=== PATIENT | male | born 1950 | race Caucasian/White ===

== ENCOUNTER 2018-06-20 09:31 | Day surgery (SDC) | payer OTHER ==
--- NOTE | 2018-06-13 10:59 | GHP ---
[f rep st] PREOP HISTORY AND PHYSICAL DATE OF ADMISSION: 06/20/2018 DATE OF SURGERY: 06/20/2018. PREOP DIAGNOSIS: Sebaceous cyst of left back and left inguinal hernia. HISTORY OF PRESENT ILLNESS: A 68-year-old man who has a recurrent infected sebaceous cyst of his lef t back, status post incision and drainage. It is healing since the time of his initial evaluation. He also complains of left inguinal hernia times several years, became symptomatic when he was traveli ng in [place] and he reports discomfort, especially after significant exercise such as 18 holes of golf . It becomes firm with walking. He notices a palpable bulge that is reducible. He does not have an y problems with urination. He does notice frequency and incomplete evacuation with bowel movements. His symptoms are escalating over the past year. PAST MEDICAL HISTORY: Hearing loss, hyperlipidemia, chronic knee pain. PAST SURGICAL HISTORY: Right arthroscopic knee surgery with meniscus tear. Uvulopalatopharyngoplast y. MEDICATIONS: Gill, Ambien, aspirin 81 mg, atorvastatin, Flonase, vitamin D3. ALLERGIES: No known drug allergies. FAMILY HISTORY: Significant for bladder cancer in brother, diabetes in brother and sister, and Crohn disease in daughter. SOCIAL HISTORY: He is a former smoker. Denies current tobacco or recreational drug use. He does dr ink alcohol daily. He is . REVIEW OF SYSTEMS: No fevers or chills. PHYSICAL EXAM: GENERAL: A well-developed, well-nourished man in no acute distress. HEENT: Normoce phalic, atraumatic. No hearing deficits. Pupils are equal and round. No scleral icterus. Mucous m embranes are moist. NECK: Trachea midline. RESPIRATORY: Clear to auscultation bilaterally. No in creased work of breathing. CARDIOVASCULAR: No peripheral edema. Regular rate and rhythm. SKIN: A 3 cm cyst on back without surrounding induration or evidence of active infection. ABDOMEN: Soft, n ondistended and nontender. Obvious left inguinal hernia, reducible. No evidence of right inguinal h ernia. PSYCH: Mood and affect normal. NEURO: Grossly intact. IMPRESSION AND PLAN: A 68-year-old man with left inguinal hernia and recurrent left back sebaceous c yst. Recommend laparoscopic, possible open left, possible bilateral inguinal hernia repair with mesh . We will also perform excisional excision of the sebaceous cyst. Discussed risks of surgery includ ing, but not limited to heart attack, stroke, blood clots, or . Discussed risk of infection, bl eeding, damage to surrounding structures such as the cord or cord structures, and recurrence were all discussed. He understands the risks and would like to proceed. This will be outpatient procedure. He will receive antibiotics on-call to the operating room. /[id number]/MODL
[2018-06-20] MEDS ORDERED: ceFAZolin 2 GM/DEXTROSE 100 ML IV ONE (09:39)
[2018-06-20] MEDS ORDERED: LR 1,000 ML IV ONE (09:39)
[2018-06-20] MEDS ORDERED: MIDAZOLAM 2 MG/2 ML VIAL IVP ONE (10:03)
[2018-06-20] MEDS ORDERED: BUPIVACAINE 0.5% 30 ML SDV ONE (10:05)
--- NOTE | 2018-06-20 10:21 | PDHPUP ---
History & Physical Update H&P update statement: This history and physical update is based on an assessment of the patient which was completed after admission or registration (within 24 hours), but prior to the surgery/procedure. H&P update: H&P reviewed & patient examined, no change in patient's condition since H&P completed
[2018-06-20] MEDS ORDERED: PROPOFOL/EMULSION 500 MG/50 ML BOTTLE IV ONE ×3 (10:23→12:06)
[2018-06-20] MEDS ORDERED: PROPOFOL 200 MG/20 ML VIAL ONE (10:23)
[2018-06-20] MEDS ORDERED: fentaNYL 250 MCG/5 ML INJ ONE (10:23)
--- NOTE | 2018-06-20 10:28 | PDANEPAE ---
ANE History of Present Illness Left inguinal hernia repair laparoscopic possible BL. Left back lesion excision ANE Past Medical History - Cardiovascular History Hx Hypertension: No Hx Arrhythmias: No Hx Chest Pain: No Hx Coronary Artery / Peripheral Vascular Disease: No Hx CHF / Valvular Disease: No Hx Palpitations: No Cardiovascular History Comment: high chol - Pulmonary History Hx COPD: No Hx Asthma/Reactive Airway Disease: No Hx Recent Upper Respiratory Infection: No Hx Oxygen in Use at Home: No Hx Sleep Apnea: Yes Sleep Apnea Screening Result - Last Documented: Positive Pulmonary History Comment: hx of RICKEY but had surgery to fix - Neurologic History Hx Cerebrovascular Accident: No Hx Seizures: No Hx Dementia: No - Endocrine History Hx Diabetes: No Hypothyroid: No Hyperthyroid: No - Renal History Hx Renal Disorders: No - Liver History Hx Hepatic Disorders: No - Neurological & Psychiatric Hx Hx Neurological and Psychiatric Disorders: No - Cancer History Hx Cancer: No - Congenital Disorder History Hx Congenital Disorders: No - GI History Hx Gastrointestinal Disorders: Yes Gastrointestinal History Comment: hx of colonoscopy - Other Health History Other Health History: wears glasses - Chronic Pain History Chronic Pain: No - Surgical History Prior Surgeries: UPPP in 2002. right knee meniscus repair 2012 ANE Review of Systems Review of Systems: - Exercise capacity METS (RN): 4 METS ANE Patient History - Allergies Allergies/Adverse Reactions: No Known Allergies Allergy (Verified 06/16/18 09:10) - Home Medications Home medications: home medication list seen and reviewed Home Medications: Aspirin 81mg (*) 06/16/18 [Last Taken 06/18/18] Atorvastatin Calcium 06/16/18 [Last Taken 06/19/18] Vitamin D2 06/16/18 [Last Taken 06/19/18] - NPO status NPO Status: no food or drink >8 hours NPO Since - Liquids (Date): 06/20/18 NPO Since - Liquids (Time): 07:05 NPO Since - Solids (Date): 06/19/18 NPO Since - Solids (Time): 22:00 - Anes Hx Anes Hx: no prior problems - Smoking Hx Smoking Status: Former smoker Marijuana use: No - Alcohol Use Alcohol Use: Other (Daily) - Family Anes Hx Family Hx Anesthesia Complications: none ANE Labs/Vital Signs - Vital Signs Blood Pressure: 155/98 Heart Rate: 72 Respiratory Rate: 18 O2 Sat (%): 97 Height: 180.34 cm Weight: 90.718 kg ANE Physical Exam - Airway Neck exam: decreased ROM Mallampati Score: Class 2 Mouth exam: normal dental/mouth exam - Pulmonary Pulmonary: no respiratory distress, clear to auscultation - Cardiovascular Cardiovascular: regular rate and rhythym, no murmur, rub, or gallop - ASA Status ASA Status: II ANE Anesthesia Plan Anesthesia Plan: general endotracheal anesthesia Specialized Airway: video laryngoscope
[2018-06-20] MEDS ORDERED: GLYCOPYRROLATE 0.2 MG/1 ML VIAL ONE (11:16)
[2018-06-20] MEDS ORDERED: DEXAMETHASONE 4 MG/ML VIAL ONE (11:16)
[2018-06-20] MEDS ORDERED: ROCURONIUM 50 MG/5 ML VIAL ONE ×2 (11:16)
[2018-06-20] MEDS ORDERED: ONDANSETRON 4 MG/2 ML VIAL ONE (11:16)
[2018-06-20] MEDS ORDERED: fentaNYL 100 MCG/2 ML INJ ONE ×2 (11:18→12:06)
[2018-06-20] MEDS ORDERED: METOPROLOL TARTRATE 5 MG/5 ML INJ ONE (11:25)
--- NOTE | 2018-06-20 12:31 | POSTOPPROG ---
Post Op Note Date of Operation: 06/20/18 Surgeon: Katie Mejia Director Clinical Operations: kat Anesthesiologist: sky Anesthesia: GET(General Endotracheal) Pre-op Diagnosis: L inguinal hernia, L back sebaceous cyst Post-op Diagnosis: B inguinal hernia, L back birdie cyst Indication: 68yo M with large symptomatic L hernia with cyst Procedure: Lap BIH, excision of L back birdie cyst Findings: Large L inguinal hernia, RIH, birdie cyst small tear in wall with thick white Inf/Abcess present in the surg proc area at time of surgery?: No EBL: Minimal Complications: none immediately post-op Bowel Protocol: N/A Clean Closure Performed: N/A Specimen(s): sebaceous cyst
[2018-06-20] MEDS ORDERED: PHENYLEPHRINE HCL 100 MCG/ML SYR ONE (12:32)
[2018-06-20] MEDS ORDERED: SUGAMMADEX SODIUM 200 MG/2 ML VIAL IVP ONE (12:38)
[2018-06-20] MEDS ORDERED: fentaNYL 100 MCG/2 ML INJ IVP PRN (12:55)
[2018-06-20] MEDS ORDERED: NALOXONE HCL 0.4 MG/ML INJ IVP PRN (12:55)
[2018-06-20] MEDS ORDERED: ONDANSETRON 4 MG/2 ML VIAL IVP PRN (12:55)
[2018-06-20] MEDS ORDERED: PROMETHAZINE HCL 25 MG/ML INJ IVP PRN (12:55)
[2018-06-20] MEDS ORDERED: ALBUTEROL 3 ML DEYVIAL IH PRN (12:55)
[2018-06-20 14:08] VITALS: BP 117/88
--- NOTE | 2018-06-20 15:23 | POSTANESTH ---
Post Anesthetic Evaluation Cardiovascular Status: Normal, Stable Respiratory Status: Normal, Stable Level of Consciousness/Mental Status: Can Participate in Eval Pain Control: Adequate, Prn Tx Ordered Nausea/Vomiting Control: Adequate, Prn Tx Ordered Complications Possibly Related to Anesthesia: None Noted
== END 2018-06-20 14:22 | disposition home or self-care (01) ==
LOC: FSGY 09:31
PROVIDERS: ATTEND Surgery
PROC: 0JB70ZX Excision of Back Subcutaneous Tissue and Fascia, Open Approach, Diagnostic (ICD-10-PCS; principal; 2018-06-20 10:30)
PROC: 0YUA4JZ Supplement Bilateral Inguinal Region with Synthetic Substitute, Percutaneous Endoscopic Approach (ICD-10-PCS; principal; 2018-06-20 10:30)
DX: K40.90 Unilateral inguinal hernia, without obstruction or gangrene, not specified as recurrent (principal); L72.3 Sebaceous cyst; E78.5 Hyperlipidemia, unspecified; M25.561 Pain in right knee
CPT/HCPCS: C1727; C1781; J0690; J1100; J2250; J2370; J2405; J2704; J3010